=== PATIENT | male | born 1970 | race Caucasian/White ===

== ENCOUNTER 2019-08-19 12:25 | Emergency (ER) | payer OTHER ==
[2019-08-19 12:32] VITALS: BP 152/91
--- NOTE | 2019-08-19 12:45 | ED Physician Documentation ---
PD HPI URI - Stated complaint Stated Complaint: COUGH/CONGESTION - Chief complaint Chief Complaint: Heent - History obtained from History obtained from: Patient - History of Present Illness Timing - onset: How many weeks ago (1) Timing duration: Days (7) Timing details: Gradual onset Associated symptoms: Fever, Ear pain, Nasal congestion, Rhinorrhea, Sore throat, Productive cough, Dyspnea. No: Hemoptysis Contributing factors: No: COPD / asthma Improves by: Nothing Recently seen: Not recently seen - Additional information Additional information: This is a 49-year-old man who presents with complaints that he had a chest cold for the past 7 days. He is coughing bringing up clear to green phlegm and also blowing some mucus out of his nose mainly clear. Has been very stuffy And has used Neomed sinus rinse that helped that quite a bit. He is having ear pain in the right greater than the left and a mild sore throat. Been taking TheraFlu for his symptoms but he is hesitant to take a lot of decongestant and cough medications because of a history of hypertension. Denies a history of asthma but has used inhalers in the past and he does feel like he is wheezing. He is felt feverish but has not documented any fever. No nausea or vomiting. His roommate's been ill. 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 He is a smoker. Review of Systems Constitutional: reports: Fever (Subjective) Ears: reports: Ear pain (Right greater than left) Nose: reports: Rhinorrhea / runny nose Throat: reports: Sore throat Respiratory: reports: Dyspnea, Cough, Wheezing GI: denies: Nausea, Vomiting PD PAST MEDICAL HISTORY - Present Medications Home Medications: Ambulatory Orders Medication Instructions Recorded Confirmed Albuterol Sulf [Ventolin Hfa 1 - 2 puffs INH Q4HR PRN #1 inhaler 08/19/19 Inhaler] Azithromycin [Zithromax] 0 mg PO DAILY #6 tablet 08/19/19 - Allergies Allergies/Adverse Reactions: Allergies Allergy/AdvReac Type Severity Reaction Status Date / Time No Known Drug Allergies Allergy Verified 08/19/19 12:30 PD ED PE NORMAL - Vitals Vital signs reviewed: Yes - General General: Alert and oriented X 3, No acute distress, Well developed/nourished - HEENT HEENT: Atraumatic, PERRL, EOMI, Ears normal (Mild retraction bilaterally with some injection down the malleolus), Moist mucous membranes, Pharynx benign - Neck Neck: Supple, no meningeal sign, No adenopathy, Thyroid normal - Cardiac Cardiac: RRR, No murmur, Strong equal pulses - Respiratory Respiratory: No respiratory distress, Other (Diffuse inspiratory and expiratory coarseness and wheezing. No discrete area of crackles.) - Neuro Neuro: Alert and oriented X 3, No motor deficit, No sensory deficit, Normal speech - Psych Psych: Normal mood, Normal affect Results - Vitals Vitals: Vital Signs - 24 hr 08/19/19 12:30 Temperature 37.0 C Heart Rate 96 Respiratory 16 Rate Blood Pressure 152/91 H O2 Saturation 97 Oxygen O2 Source Room air PD MEDICAL DECISION MAKING - ED course Complexity details: d/w patient ED course: Plan to treat with refill for an inhaler and also Zithromax Z-YA. He questioned whether or not he should have an x-ray. Based on what I am hearing in his lungs is not on a change my management today at all and this was discussed with him although I did tell him I am happy to order the chest x-ray if he is can concerned and at this point he is declined the x-ray. He asked for a referral for primary care and is given number for [facility] physicians. He is also given a note to be off work today. Continue with the NeilMed sinus rinse and taking ibuprofen to help with any fever or discomfort. Departure - Departure Disposition: 01 Home, Self Care Clinical Impression: Bronchitis Condition: Good Instructions: ED Upper Resp Infec Abx Tx Follow-Up: [facility] [Provider Group] Prescriptions: Albuterol Sulf [Ventolin Hfa Inhaler] 1 - 2 puffs INH Q4HR PRN #1 inhaler PRN Reason: Shortness Of Air/Wheezing Azithromycin [Zithromax] 0 mg PO DAILY #6 tablet Comments: Take Z-Ya as prescribed. Use the inhaler up to every 4 hours as needed for wheezing and to help with the cough. Take ibuprofen to help with inflammation and any pain. Follow-up with a local primary care provider if your symptoms are not improving and particularly if you are still wheezing and short of breath after finishing the Z-Ya. Forms: Activity restrictions
== END 2019-08-19 13:13 | disposition home or self-care (01) ==
LOC: ED 12:25
DX: J40 Bronchitis, not specified as acute or chronic (principal); I10 Essential (primary) hypertension; F17.200 Nicotine dependence, unspecified, uncomplicated
CPT/HCPCS: 99282; 99284